=== PATIENT | male | born 1995 | race African-American/Black ===

== ENCOUNTER 2019-05-11 08:21 | Emergency (ER) | payer SELFPAY ==
[~2019-05-11] VITALS: Ht 195.6 cm; Wt 90.9 kg
[2019-05-11] MEDS ORDERED: PREDNISONE50 MG PO (08:52)
[2019-05-11] MEDS ORDERED: PROAIR HFA108 MCG/AC PO (08:52)
[2019-05-11] MEDS ORDERED: ZPAK PO (08:52)
[2019-05-11 09:30] VITALS: BP 155/85
== END 2019-05-11 09:30 | disposition home or self-care (01) | DRG 203 ==
LOC: ED 08:21
DX: J40 Bronchitis, not specified as acute or chronic (principal)